=== PATIENT | female | born 1950 | race American Indian/Alaskan Native ===

== ENCOUNTER 2019-09-07 08:59 | Emergency (ER) | payer MEDICARE ==
[2019-09-07 09:10] VITALS: BP 120/53
--- NOTE | 2019-09-07 10:29 | Emergency Department Report ---
ED Extremity Problem HPI - General Chief complaint: Extremity Problem,Nontraumatic Stated complaint: LEG/KNEE PAIN Time Seen by Provider: 09/07/19 10:16 Source: EMS Mode of arrival: Wheelchair Limitations: No Limitations - History of Present Illness Initial comments: This is a 68-year-old female presents the emergency department with chief complaint of left leg pain and swelling. Patient was brought to the emergency department via EMS. She was noted to be walking in [place] and unsure if she is homeless. She has past medical history of diabetes, hypertension and schizophrenia. She has severe arthritis in her leg which is what she thinks is causing her symptoms. She denies any injuries. She denies any associated fevers, chills, chest pain, shortness of breath, weakness or any other associated symptoms. - Related Data Previous Rx's Medication Instructions Recorded Last Taken Type Acetaminophen [Acetaminophen TAB] 650 mg PO ONCE #30 tablet 09/07/19 Unknown Rx Allergies Allergy/AdvReac Type Severity Reaction Status Date / Time No Known Allergies Allergy Unverified 09/07/19 09:05 ED Review of Systems ROS: Stated complaint: LEG/KNEE PAIN Other details as noted in HPI Comment: All other systems reviewed and negative Constitutional: denies: chills, fever Eyes: denies: eye pain, eye discharge, vision change ENT: denies: ear pain, throat pain Respiratory: denies: cough, shortness of breath, wheezing Cardiovascular: denies: chest pain, palpitations Endocrine: no symptoms reported Gastrointestinal: denies: abdominal pain, nausea, diarrhea Genitourinary: denies: urgency, dysuria, discharge Musculoskeletal: as per HPI, arthralgia. denies: back pain, joint swelling Skin: denies: rash, lesions Neurological: denies: headache, weakness, paresthesias Psychiatric: denies: anxiety, depression Hematological/Lymphatic: denies: easy bleeding, easy bruising ED Past Medical Hx - Past Medical History Previous Medical History?: Yes Hx Hypertension: Yes Hx Diabetes: Yes Hx Psychiatric Treatment: Yes (Schizophrenia) - Social History Smoking Status: Never Smoker - Medications Home Medications: Home Medications Medication Instructions Recorded Confirmed Last Taken Type Acetaminophen [Acetaminophen TAB] 650 mg PO ONCE #30 tablet 09/07/19 Unknown Rx ED Physical Exam - General Limitations: No Limitations General appearance: alert, in no apparent distress - Head Head exam: Present: atraumatic, normocephalic - Eye Eye exam: Present: normal appearance, PERRL, EOMI Pupils: Present: normal accommodation - ENT ENT exam: Present: normal exam, normal orophraynx, mucous membranes moist - Neck Neck exam: Present: normal inspection, full ROM. Absent: tenderness, meningismus - Respiratory Respiratory exam: Present: normal lung sounds bilaterally. Absent: respiratory distress, wheezes, rales, rhonchi, stridor - Cardiovascular Cardiovascular Exam: Present: regular rate, normal rhythm, normal heart sounds. Absent: systolic murmur, diastolic murmur, rubs, gallop - GI/Abdominal GI/Abdominal exam: Present: soft, normal bowel sounds. Absent: distended, tenderness, guarding, rebound, rigid - Extremities Exam Extremities exam: Present: normal inspection, full ROM, tenderness (tenderness to palpation over the left knee with negative varus and valgus strain, normal active range of motion without pain. Normal DP and PT pulses. No erythema or edema. No wounds or ulcerations..). Absent: calf tenderness - Back Exam Back exam: Present: normal inspection, full ROM. Absent: tenderness, CVA tenderness (R), CVA tenderness (L) - Neurological Exam Neurological exam: Present: alert, oriented X3, CN II-XII intact - Psychiatric Psychiatric exam: Present: normal affect, normal mood - Skin Skin exam: Present: warm, dry, intact, normal color. Absent: rash ED Course Vital Signs 09/07/19 09:04 Temperature 98.2 F Pulse Rate 69 Respiratory 16 Rate Blood Pressure 120/53 O2 Sat by Pulse 97 Oximetry ED Medical Decision Making - Radiology Data Radiology results: report reviewed Vascular Lab Report Signed Patient: VÍCTOR LEWIS MR#: [id number] : 1950 Acct:[id number] Age/Sex: 68 / F ADM Date: 09/07/19 Loc: ED Attending Dr: Ordering Physician: SAMUEL LAW Date of Service: 09/07/19 Procedure(s): VL venous duplex LE LT Accession Number(s): [id number] cc: SAMUEL LAW DUPLEX DOPPLER LOWER EXTREMITY VEINS, LEFT INDICATION: swelling, pain. TECHNIQUE: Duplex doppler imaging was performed through the veins of the left lower extremity using venous compression and other maneuvers. COMPARISON: None available. FINDINGS: Common Femoral vein: Negative. Superficial Femoral vein: Negative. Popliteal vein: Negative. Calf veins: Negative. Additional findings: Probable small irregular fluid collection popliteal fossa IMPRESSION: 1. No sonographic evidence for DVT in the left lower extremity. Please see comments Signer Name: Mukesh Paulino MD Signed: 09/07/2019 11:25 AM Workstation Name: [id number] Transcribed By: WG Dictated By: Mukesh Paulino MD Electronically Authenticated By: Mukesh Paulino MD Signed Date/Time: 09/07/19 1125 XRay Report Signed Patient: VÍCTOR LEWIS MR#: [id number] : 1950 Acct:[id number] Age/Sex: 68 / F ADM Date: 09/07/19 Loc: ED Attending Dr: Ordering Physician: SAMUEL LAW Date of Service: 09/07/19 Procedure(s): XR knee 1-2V LT Accession Number(s): [id number] cc: SAMUEL LAW Fluoro Time In Minutes: LEFT KNEE 2 VIEWS INDICATION: pain, swelling. COMPARISON: None. IMPRESSION: Borderline bone mineralization. Severe tricompartmental osteoarthritic changes are identified. The lateral compartment appears most affected. Large subchondral cysts or possible osteochondral defects are identified in the lateral compartment. There is no obvious fracture. Moderate joint effusion is noted on the lateral image. Signer Name: Scott Lim Jr, MD Signed: 09/07/2019 11:32 AM Workstation Name: [id number] Transcribed By: TTR Dictated By: SCOTT LIM JR, MD Electronically Authenticated By: SCOTT LIM JR, MD Signed Date/Time: 09/07/19 1132 - Medical Decision Making Patient presented with left flank pain via EMS. X-ray showed severe tricompartmental degenerative changes but no acute findings. Ultrasound was negative for DVT. There are no signs of infection on exam. Patient had normal DP and PT pulses making ischemic leg or severe peripheral vascular disease unlikely the source of her pain. There was soft compartments acute compartment syndrome unlikely. She had normal strength and sensation. I will a suspicion for rhabdomyolysis with no severe muscular tenderness and primarily pain in the joint alone. Recommend outpatient follow-up with orthopedics. manager social services was consulted due to her potential homelessness to ensure that she does have a safe place to go home. She is denying suicidal thoughts, homicidal thoughts, auditory visual hallucinations currently. She revising her stay in the diagnosis, treatment plan and follow-up instructions and all questions were answered. - Differential Diagnosis fracture, DVT, strain, sprain Critical care attestation.: If time is entered above; I have spent that time in minutes in the direct care of this critically ill patient, excluding procedure time. ED Disposition Clinical Impression: Knee pain, left Qualifiers: Chronicity: acute Qualified Code(s): M25.562 - Pain in left knee Disposition: DC- TO HOME OR SELFCARE Is pt being admited?: No Condition: Stable Instructions: Arthralgia (ED) Prescriptions: Acetaminophen [Acetaminophen TAB] 650 mg PO ONCE #30 tablet Referrals: PRIMARY CARE, [Primary Care Provider] - 3-5 Days LIVIA JEFFERY MD [Staff Physician] - 3-5 Days Time of Disposition: 11:53
--- NOTE | 2019-09-07 11:29 | Vascular Lab Report ---
DUPLEX DOPPLER LOWER EXTREMITY VEINS, LEFT INDICATION: swelling, pain. TECHNIQUE: Duplex doppler imaging was performed through the veins of the left lower extremity using venous compr ession and other maneuvers. COMPARISON: None available. FINDINGS: Common Femoral vein: Negative. Superficial Femoral vein: Negative. Popliteal vein: Negative. Calf veins: Negative. Additional findings: Probable small irregular fluid collection popliteal fossa IMPRESSION: 1. No sonographic evidence for DVT in the left lower extremity. Please see comments Signer Name: Mukesh Paulino MD Signed: 09/07/2019 11:25 AM Workstation Name: [id number]
--- NOTE | 2019-09-07 11:36 | XRay Report ---
LEFT KNEE 2 VIEWS INDICATION: pain, swelling. COMPARISON: None. IMPRESSION: Borderline bone mineralization. Severe tricompartmental osteoarthritic changes are iden tified. The lateral compartment appears most affected. Large subchondral cysts or possible osteochond ral defects are identified in the lateral compartment. There is no obvious fracture. Moderate joint e ffusion is noted on the lateral image. Signer Name: Scott Lim Jr, MD Signed: 09/07/2019 11:32 AM Workstation Name: [id number]
[2019-09-07] MEDS ORDERED: ACETAMINOPHEN 325 MG TAB PO ONE (11:52)
== END 2019-09-07 12:30 | disposition home or self-care (01) ==
LOC: ED 08:59
DX: M25.562 Pain in left knee (principal); I10 Essential (primary) hypertension; E11.9 Type 2 diabetes mellitus without complications; F20.9 Schizophrenia, unspecified; Z79.899 Other long term (current) drug therapy

== ENCOUNTER 2021-06-16 03:43 | Emergency (ER) | payer MEDICARE ==
[2021-06-16] MEDS ORDERED: fentaNYL 100 MCG/2 ML INJ IV ONE ×2 (03:51→03:55)
[2021-06-16] MEDS ORDERED: ONDANSETRON 4 MG/2 ML INJ IV ONE ×2 (03:51→03:55)
--- NOTE | 2021-06-16 03:56 | Emergency Department Report ---
HPI - HPI HPI: Charge nurse triage The patient is a 70-year-old female present with chief complaint of neck pain. The patient is extremely poor historian but acknowledges she came to the emergency department because of pain to the right occipital region and neck. Patient denies any preceding trauma. EMS reports a roommate contacted EMS because they thought she had a left facial droop. In the ED there is no focal deficits found however patient continues to complain of pain in the right occipital region and neck. <CINDY RASCON - Last Filed: 06/16/21 05:57> <SHARA LOPEZ - Last Filed: 06/16/21 07:26> - General Time Seen by Provider: 06/16/21 03:49 ED Past Medical Hx - Past Medical History Hx Hypertension: Yes Hx Diabetes: Yes Hx Psychiatric Treatment: Yes (Schizophrenia) - Family History Family history: no significant - Social History Smoking Status: Never Smoker Substance Use Type: None <CINDY RASCON - Last Filed: 06/16/21 05:57> <SHARA LOPEZ - Last Filed: 06/16/21 07:26> - Medications Home Medications: Home Medications Medication Instructions Recorded Confirmed Last Taken Type Acetaminophen [Acetaminophen TAB] 650 mg PO ONCE #30 tablet 09/07/19 Unknown Rx Docusate Sodium [Colace] 100 mg PO BID PRN #60 capsule 06/16/21 Unknown Rx Ferrous Sulfate [Ferrous Sulfate 324 mg PO BID #60 tablet.dr 06/16/21 Unknown Rx 324 MG] HYDROcodone/APAP 5-325 [[place] 1 each PO Q6HR PRN #10 tablet 06/16/21 Unknown Rx 5/325] Ibuprofen [Motrin 800 MG tab] 800 mg PO Q8HR PRN #20 tablet 06/16/21 Unknown Rx ED Review of Systems ROS: Stated complaint: GENERAL ILLNESS/PAIN Other details as noted in HPI Comment: Unobtainable due to pts medical conditions (Poor historian) Neurological: headache <CINDY RASCON - Last Filed: 06/16/21 05:57> ROS: Stated complaint: GENERAL ILLNESS/PAIN Other details as noted in HPI <SHARA LOPEZ - Last Filed: 06/16/21 07:26> Physical Exam - Physical Exam Physical Exam: GENERAL: The patient is well-developed well-nourished female lying on stretcher occasionally crying out secondary to pain in her head and neck. [] HEENT: Normocephalic. Atraumatic. Extraocular motions are intact. Patient has moist mucous membranes. NECK: Supple. Trachea midline CHEST/LUNGS: Clear to auscultation. There is no respiratory distress noted. HEART/CARDIOVASCULAR: Regular. There is no tachycardia. There is no gallop rub or murmur. ABDOMEN: Abdomen is soft, nontender. Patient has normal bowel sounds. There is no abdominal distention. SKIN: There is no rash. There is no edema. There is no diaphoresis. NEURO: The patient is awake, alert, and oriented. The patient is cooperative. The patient has no focal neurologic deficits. Cranial nerves II through XII grossly intact. No facial droop noted. Tongue midline. Moves all extremities. GCS 15. Patient is edentulous making understanding her speech somewhat difficult but this is apparently her baseline per roommate MUSCULOSKELETAL: There is no evidence of acute injury. <CINDY RASCON K - Last Filed: 06/16/21 05:57> - Physical Exam Vital Signs: Vital Signs 06/16/21 06/16/21 06/16/21 04:05 04:21 05:11 Temperature 98.1 F Pulse Rate 70 Respiratory 20 15 Rate Blood Pressure 129/58 [Right] O2 Sat by Pulse 100 99 Oximetry 06/16/21 06/16/21 05:16 06:01 Temperature Pulse Rate 65 71 Respiratory 15 17 Rate Blood Pressure 102/44 112/68 [Right] O2 Sat by Pulse 99 97 Oximetry <SHARA LOPEZ - Last Filed: 06/16/21 07:26> ED Course - Reevaluation(s) Reevaluation #1: 06/16/21 05:50 Patient states she feels better after fentanyl. Awaiting CTA results <CINDY RASCON - Last Filed: 06/16/21 05:57> Vital Signs 06/16/21 06/16/21 06/16/21 04:05 04:21 05:11 Temperature 98.1 F Pulse Rate 70 Respiratory 20 15 Rate Blood Pressure 129/58 [Right] O2 Sat by Pulse 100 99 Oximetry 06/16/21 06/16/21 05:16 06:01 Temperature Pulse Rate 65 71 Respiratory 15 17 Rate Blood Pressure 102/44 112/68 [Right] O2 Sat by Pulse 99 97 Oximetry <SHARA LOPEZ - Last Filed: 06/16/21 07:26> ED Medical Decision Making - Lab Data Result diagrams: 06/16/21 04:18 06/16/21 04:18 - Radiology Data Radiology results: report reviewed (CT head, CT cervical spine), image reviewed (CT head, CT cervical spine) [address] [address] Cat Scan Report Signed Patient: VÍCTOR LEWIS MR#: [id number] : 1950 Acct:[id number] Age/Sex: 70 / F ADM Date: 06/16/21 Loc: ED Attending Dr: Ordering Physician: CINDY RASCON MD Date of Service: 06/16/21 Procedure(s): CT head/brain wo con Accession Number(s): [id number] cc: CINDY RASCON MD CT HEAD WITHOUT CONTRAST INDICATION: Occipital pain, neck pain. TECHNIQUE: All CT scans at this location are performed using CT dose reduction for ALARA by means of automated exposure control. COMPARISON: None available. FINDINGS: HEMORRHAGE: None. EXTRA-AXIAL SPACES: Normal in size and morphology for the patient's age. VENTRICULAR SYSTEM: Normal in size and morphology for the patient's age. BRAIN PARENCHYMA: No acute findings. Diffuse atrophic changes are noted. Mild microangiopathic changes are noted in the deep periventricular white matter. MIDLINE SHIFT OR HERNIATION: None. ORBITS: Normal as visualized. SOFT TISSUES OF HEAD: Normal. CALVARIUM: Normal. VISUALIZED PARANASAL SINUSES AND MASTOID AIR CELLS: Clear. ADDITIONAL FINDINGS: None. IMPRESSION: 1. No acute intracranial abnormality. Signer Name: Mike Valdez MD Signed: 06/16/2021 4:13 AM Workstation Name: [id number] Transcribed By: ANTOINETTE Dictated By: Mike Valdez MD Electronically Authenticated By: Mike Valdez MD Signed Date/Time: 06/16/21412 DD/ 1 TD/TT: Print Cancel [address] [address] Cat Scan Report Signed Patient: VÍCTOR LEWIS MR#: [id number] : 1950 Acct:[id number] Age/Sex: 70 / F ADM Date: 06/16/21 Loc: ED Attending Dr: Ordering Physician: CINDY RASCON MD Date of Service: 06/16/21 Procedure(s): CT cervical spine wo con Accession Number(s): [id number] cc: CINDY RASCON MD CT CERVICAL SPINE WITHOUT CONTRAST INDICATION: Occipital pain, neck pain. TECHNIQUE: Axial CT images of the spine were obtained. Sagittal and coronal reformatted images were produced. All CT scans at this location are performed using CT dose reduction for ALARA by means of automated exposure control. COMPARISON: None available. FINDINGS: ACUTE FRACTURE(S) OR SUBLUXATION: None. SPINAL DEGENERATIVE CHANGES: There is diffuse discogenic degenerative change. There is osseous bridging at the C5-6 disc space. Prominent anterior marginal osteophytes are noted throughout. There is mild diffuse facet arthropathy. PARASPINAL SOFT TISSUES: No soft tissue swelling or other acute abnormalities. ADDITIONAL FINDINGS: No significant additional findings. IMPRESSION: 1. No acute fracture or subluxation in the spine in neutral position. Signer Name: Mike Valdez MD Signed: 06/16/2021 4:12 AM Workstation Name: [id number] Transcribed By: SW Dictated By: Mike Valdez MD Electronically Authenticated By: Mike Valdez MD Signed Date/Time: 06/16/21411 DD/ 8 TD/TT: Print Cancel - Medical Decision Making Patient states her physician has been working her up for her low blood count. She states she had a study performed that did not reveal any blood in her stool. Patient denies bright red blood per rectum or melena. The patient primary physician is aware of the patient's anemia and is working her up. - Differential Diagnosis Headache, ICH, carotid dissection, cervical radiculopathy, <CINDY RASCON K - Last Filed: 06/16/21 05:57> - Lab Data Result diagrams: 06/16/21 04:18 06/16/21 04:18 - Radiology Data CT angio head INDICATION / CLINICAL INFORMATION: 70 years Female; Occipital headache and neck pain. TECHNIQUE: Thin cut axial images obtained through the head during IV bolus contrast administration. Sagittal, coronal, and 3 plane MIP reconstructions performed by the technologist. NASCET type criteria used evaluate stenoses. Automated exposure control utilized for radiation reduction purposes. COMPARISON: None available. FINDINGS: INTERNAL CAROTID ARTERIES: No significant narrowing appreciated. Mild atherosclerotic disease noted. VERTEBROBASILAR SYSTEM: No significant narrowing appreciated. Mild sclerotic disease. DISTAL BRANCHES: Distal branches of the anterior, middle, and posterior cerebral arteries are fairly symmetric in appearance and number. The A1 segment on the right is hypoplastic, compared with the left-normal variant. Focal area of moderate narrowing is seen in the pericallosal branch of the left anterior cerebral artery adjacent to the superior margin of the junction of the genu and body of the corpus callosum. Focal areas of eiay-gs-tjulzvtq narrowing are seen in the P1-2 junctional region on the left posterior cerebral artery. Areas of mild narrowing seen in the same region of the right HEALTH/SAFETY JOB TITLES. ANEURYSM: None identified. ADDITIONAL FINDINGS: Rightward of midline, along the expected location of the tuberculum sella/chiasmatic groove, along the anterior margin of the pituitary fossa, there is an 8mm dural based lesion, most likely representing a very small meningioma. The A1 segment of the right anterior cerebral artery lies along the superior margin of this finding. Mild mucosal thickening seen in the ethmoids. IMPRESSION: 1. No evidence of large vessel occlusion. 2. Focal areas of narrowing as described above. 3. Small, presumed meningioma seen in the region of the chiasmatic annamaria ove/tuberculum sella, rightward of midline CT angio neck INDICATION / CLINICAL INFORMATION: 70 years Female; Occipital headache and neck pain. TECHNIQUE: Thin cut axial images obtained through the head during IV bolus contrast administration. Sagittal, coronal, and 3 plane MIP reconstructions performed by the technologist. NASCET type criteria used evaluate stenoses. All CT scans at this location are performed using CT dose reduction for ALARA by means of automated exposure control. COMPARISON: None available. FINDINGS: ARCH: Normal aortic arch branching suggested. CAROTID ARTERIES: The visualized common and internal carotid arteries are widely patent. Minimal atherosclerotic disease seen in the carotid bifurcation regions. VERTEBRAL ARTERIES: Codominant vertebral system seen. Focal area of mild narrowing is seen at the origin of the left vertebral artery. ADDITIONAL FINDINGS: Multilevel disc space narrowing seen in the cervical s pine. Interbody fusion suggested at C5-6. Osseous foraminal narrowing seen at multiple levels related to uncinate and/or facet hypertrophy. Disc disease combined with ligamentum flavum hypertrophy seen at C3-4 and C4-5 may impinge the cervical lkas-ikuydz-gv with MRI as clinically warranted. Scarring type changes seen in the lung apices-left greater than right. The patient is edentulous. IMPRESSION: 1. No dominant stenosis appreciated on this CTA of the neck. 2. Degenerative changes of the cervical spine as described above. - Medical Decision Making Pt c/o pain to posterior neck, reproducible midline tenderness to midline occipital area and upper cervical spine. 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 pt advised to follo w up with pmd and neurosurgeon <SHARA LOPEZ - Last Filed: 06/16/21 07:26> Critical care attestation.: If time is entered above; I have spent that time in minutes in the direct care of this critically ill patient, excluding procedure time. <CINDY RASCON - Last Filed: 06/16/21 05:57> Critical care attestation.: If time is entered above; I have spent that time in minutes in the direct care of this critically ill patient, excluding procedure time. <SHARA LOPEZ - Last Filed: 06/16/21 07:26> ED Disposition <CINDY RASCON - Last Filed: 06/16/21 05:57> Is pt being admited?: No Time of Disposition: 07:26 <SHARA LOPEZ - Last Filed: 06/16/21 07:26> Clinical Impression: Neck pain, Anemia, Cervical spine degeneration, Meningioma Disposition: 01 HOME / SELF CARE / HOMELESS Condition: Stable Instructions: Degenerative Disk Disease, Meningioma Additional Instructions: Return to the emergency department should you develop worsening symptoms, inability to tolerate food or liquids, high fever or any other concerns Prescriptions: Docusate Sodium [Colace] 100 mg PO BID PRN #60 capsule PRN Reason: Constipation Ferrous Sulfate [Ferrous Sulfate 324 MG] 324 mg PO BID #60 tablet. Ibuprofen [Motrin 800 MG tab] 800 mg PO Q8HR PRN #20 tablet PRN Reason: Pain, Moderate (4-6) HYDROcodone/APAP 5-325 [Corydon 5/325] 1 each PO Q6HR PRN #10 tablet PRN Reason: Pain Referrals: PRIMARY CARE, [Primary Care Provider] - 3-5 Days LIVIA LUO MD [Staff Physician] - 3-5 Days (Dr. Luo is an orthopedic surgeon. Please follow-up with him for further evaluation) JANINE TELLES II, MD [Staff Physician] - 3-5 Days (neurosurgeon follow up regarding your neck pain and mengioma )
--- NOTE | 2021-06-16 04:16 | Cat Scan Report ---
CT CERVICAL SPINE WITHOUT CONTRAST INDICATION: Occipital pain, neck pain. TECHNIQUE: Axial CT images of the spine were obtained. Sagittal and coronal reformatted images were produced. Al l CT scans at this location are performed using CT dose reduction for ALARA by means of automated exp osure control. COMPARISON: None available. FINDINGS: ACUTE FRACTURE(S) OR SUBLUXATION: None. SPINAL DEGENERATIVE CHANGES: There is diffuse discogenic degenerative change. There is osseous bridgi ng at the C5-6 disc space. Prominent anterior marginal osteophytes are noted throughout. There is mil d diffuse facet arthropathy. PARASPINAL SOFT TISSUES: No soft tissue swelling or other acute abnormalities. ADDITIONAL FINDINGS: No significant additional findings. IMPRESSION: 1. No acute fracture or subluxation in the spine in neutral position. Signer Name: Mike Valdez MD Signed: 06/16/2021 4:12 AM Workstation Name: [id number]
--- NOTE | 2021-06-16 04:18 | Cat Scan Report ---
CT HEAD WITHOUT CONTRAST INDICATION: Occipital pain, neck pain. TECHNIQUE: All CT scans at this location are performed using CT dose reduction for ALARA by means of automated e xposure control. COMPARISON: None available. FINDINGS: HEMORRHAGE: None. EXTRA-AXIAL SPACES: Normal in size and morphology for the patient's age. VENTRICULAR SYSTEM: Normal in size and morphology for the patient's age. BRAIN PARENCHYMA: No acute findings. Diffuse atrophic changes are noted. Mild microangiopathic change s are noted in the deep periventricular white matter. MIDLINE SHIFT OR HERNIATION: None. ORBITS: Normal as visualized. SOFT TISSUES OF HEAD: Normal. CALVARIUM: Normal. VISUALIZED PARANASAL SINUSES AND MASTOID AIR CELLS: Clear. ADDITIONAL FINDINGS: None. IMPRESSION: 1. No acute intracranial abnormality. Signer Name: Mike Valdez MD Signed: 06/16/2021 4:13 AM Workstation Name: [id number]
[2021-06-16 04:37] LABS: Hematocrit 20.6 % (30.3-42.9); Hemoglobin 6.5 gm/dl (10.1-14.3); Mean Corpuscular HGB Conc 32 % (30-34); Mean Corpuscular Volume 71 fl (79-97); Platelet Count 364 K/mm3 (140-440); Red Blood Count 2.89 M/mm3 (3.65-5.03); Red Cell Distribution Width 18.7 % (13.2-15.2)
[2021-06-16 04:46] LABS: Calcium 8.4 mg/dL (8.4-10.2); INR 0.94 (0.87-1.13)
[2021-06-16 04:47] LABS: Partial Thromboplastin Time 36.1 Sec. (24.2-36.6)
[2021-06-16 05:12] LABS: Anisocytosis 2+; Hypochromasia 3+; Total Cells Counted 100
[2021-06-16 05:13] LABS: Ovalocytes Few; Platelet Estimate Consistent w Auto
[2021-06-16 06:09] VITALS: BP 112/68
[2021-06-16] MEDS ORDERED: HYDROmorphone 1 MG/1 ML INJ IV PRN (06:25)
--- NOTE | 2021-06-16 06:31 | Cat Scan Report ---
CT angio head INDICATION / CLINICAL INFORMATION: 70 years Female; Occipital headache and neck pain. TECHNIQUE: Thin cut axial images obtained through the head during IV bolus contrast administration. S agittal, coronal, and 3 plane MIP reconstructions performed by the technologist. NASCET type criteria used evaluate stenoses. Automated exposure control utilized for radiation reduction purposes. COMPARISON: None available. FINDINGS: INTERNAL CAROTID ARTERIES: No significant narrowing appreciated. Mild atherosclerotic disease noted. VERTEBROBASILAR SYSTEM: No significant narrowing appreciated. Mild sclerotic disease. DISTAL BRANCHES: Distal branches of the anterior, middle, and posterior cerebral arteries are fairly symmetric in appearance and number. The A1 segment on the right is hypoplastic, compared with the left-normal variant. Focal area of moderate narrowing is seen in the pericallosal branch of the left anterior cerebral art diamond adjacent to the superior margin of the junction of the genu and body of the corpus callosum. Focal areas of [id number]-urqexwhy narrowing are seen in the P1-2 junctional region on the left posterio r cerebral artery. 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 ANEURYSM: None identified. ADDITIONAL FINDINGS: Rightward of midline, along the expected location of the tuberculum sella/chiasm atic groove, along the anterior margin of the pituitary fossa, there is an 8mm dural based lesion, mo st likely representing a very small meningioma. The A1 segment of the right anterior cerebral artery lies along the superior margin of this finding. Mild mucosal thickening seen in the ethmoids. IMPRESSION: 1. No evidence of large vessel occlusion. 2. Focal areas of narrowing as described above. 3. Small, presumed meningioma seen in the region of the chiasmatic groove/tuberculum sella, rightward of midline Signer Name: Faisal Bonilla MD, III Signed: 06/16/2021 6:26 AM Workstation Name: [employer]
--- NOTE | 2021-06-16 06:38 | Cat Scan Report ---
CT angio neck INDICATION / CLINICAL INFORMATION: 70 years Female; Occipital headache and neck pain. TECHNIQUE: Thin cut axial images obtained through the head during IV bolus contrast administration. S agittal, coronal, and 3 plane MIP reconstructions performed by the technologist. NASCET type criteria used evaluate stenoses. All CT scans at this location are performed using CT dose reduction for ALAR A by means of automated exposure control. COMPARISON: None available. FINDINGS: ARCH: Normal aortic arch branching suggested. CAROTID ARTERIES: The visualized common and internal carotid arteries are widely patent. Minimal athe rosclerotic disease seen in the carotid bifurcation regions. VERTEBRAL ARTERIES: Codominant vertebral system seen. Focal area of mild narrowing is seen at the johnna gin of the left vertebral artery. ADDITIONAL FINDINGS: Multilevel disc space narrowing seen in the cervical spine. Interbody fusion sug gested at C5-6. Osseous foraminal narrowing seen at multiple levels related to uncinate and/or facet hypertrophy. Disc disease combined with ligamentum flavum hypertrophy seen at C3-4 and C4-5 may impin ge the cervical ifif-uqricz-cy with MRI as clinically warranted. Scarring type changes seen in the lung apices-left greater than right. The patient is edentulous. IMPRESSION: 1. No dominant stenosis appreciated on this CTA of the neck. 2. Degenerative changes of the cervical spine as described above. Signer Name: Faisal Bonilla MD, III Signed: 06/16/2021 6:33 AM Workstation Name: [email or web address]
== END 2021-06-16 12:55 | disposition home or self-care (01) ==
LOC: ED 03:43
DX: M50.30 Other cervical disc degeneration, unspecified cervical region (principal); D32.9 Benign neoplasm of meninges, unspecified; D64.9 Anemia, unspecified; I10 Essential (primary) hypertension; E11.9 Type 2 diabetes mellitus without complications; F20.9 Schizophrenia, unspecified; R79.1 Abnormal coagulation profile; Z79.899 Other long term (current) drug therapy
CPT/HCPCS: 36415; 70450; 70496; 70498; 72125; 80048; 82805; 85007; 85025; 85610; 85730; 96374; 96375; 99285; J1170; J2405; J3010; Q9967

== ENCOUNTER 2022-01-24 14:00 | Emergency (ER) | payer MEDICARE ==
[2022-01-24] MEDS ORDERED: IBUPROFEN 800 MG TAB PO ONE (15:57)
--- NOTE | 2022-01-24 16:05 | XRay Report ---
LEFT FOOT 3 VIEWS INDICATION / CLINICAL INFORMATION: Fall, injury COMPARISON: None available. FINDINGS: BONES / JOINT(S): No acute fracture or subluxation. There is remodeling at the distal shaft of the fo urth metatarsal consistent with remote, healed fracture. Osteopenia is noted. Osteoarthrosis changes are noted throughout the foot and ankle. There is pes planus deformity. SOFT TISSUES: No significant abnormality. ADDITIONAL FINDINGS: None. Signer Name: Mike Valdez MD Signed: 01/24/2022 3:54 PM Workstation Name: [email or web address]
--- NOTE | 2022-01-24 16:19 | Emergency Department Report ---
ED Lower Extremity HPI - General Chief Complaint: Extremity Injury, Lower Stated Complaint: LFT FOOT PAIN Time Seen by Provider: 01/24/22 15:21 Source: patient, EMS Mode of arrival: Stretcher Limitations: Physical Limitation - History of Present Illness Initial Comments: Patient is a 71-year-old female presenting to ED with complaint of left toe injury after a fall while using her walker. - Related Data Previous Rx's Medication Instructions Recorded Last Taken Type Acetaminophen [Acetaminophen TAB] 650 mg PO ONCE #30 tablet 09/07/19 Unknown Rx Docusate Sodium [Colace] 100 mg PO BID PRN #60 capsule 06/16/21 Unknown Rx Ferrous Sulfate [Ferrous Sulfate 324 mg PO BID #60 tablet. 06/16/21 Unknown Rx 324 MG] HYDROcodone/APAP 5-325 [[place] 1 each PO Q6HR PRN #10 tablet 06/16/21 Unknown Rx 5/325] Ibuprofen [Motrin 800 MG tab] 800 mg PO Q8HR PRN #20 tablet 06/16/21 Unknown Rx Allergies Allergy/AdvReac Type Severity Reaction Status Date / Time No Known Allergies Allergy Unverified 09/07/19 09:05 ED Review of Systems ROS: Stated complaint: LFT FOOT PAIN Other details as noted in HPI Constitutional: denies: chills, fever Respiratory: denies: cough, shortness of breath, wheezing Cardiovascular: denies: chest pain, palpitations Gastrointestinal: denies: abdominal pain, nausea, diarrhea Skin: denies: rash, lesions Neurological: denies: headache, weakness, paresthesias Psychiatric: denies: anxiety, depression ED Past Medical Hx - Past Medical History Hx Hypertension: Yes Hx Diabetes: Yes Hx Psychiatric Treatment: Yes (Schizophrenia) - Social History Smoking Status: Never Smoker Substance Use Type: None - Medications Home Medications: Home Medications Medication Instructions Recorded Confirmed Last Taken Type Acetaminophen [Acetaminophen TAB] 650 mg PO ONCE #30 tablet 09/07/19 Unknown Rx Docusate Sodium [Colace] 100 mg PO BID PRN #60 capsule 06/16/21 Unknown Rx Ferrous Sulfate [Ferrous Sulfate 324 mg PO BID #60 tablet. 06/16/21 Unknown Rx 324 MG] HYDROcodone/APAP 5-325 [[place] 1 each PO Q6HR PRN #10 tablet 06/16/21 Unknown Rx 5/325] Ibuprofen [Motrin 800 MG tab] 800 mg PO Q8HR PRN #20 tablet 06/16/21 Unknown Rx ED Physical Exam - General Limitations: Physical Limitation General appearance: alert, in no apparent distress - Head Head exam: Present: atraumatic, normocephalic - Respiratory Respiratory exam: Present: normal lung sounds bilaterally. Absent: respiratory distress - Cardiovascular Cardiovascular Exam: Present: regular rate, normal rhythm, normal heart sounds - GI/Abdominal GI/Abdominal exam: Present: soft. Absent: distended, tenderness - Extremities Exam Extremities exam: Present: tenderness (Tenderness to left great toe without obvious external signs of injury). Absent: joint swelling - Neurological Exam Neurological exam: Present: alert, oriented X3 - Psychiatric Psychiatric exam: Present: normal affect, normal mood - Skin Skin exam: Present: warm, dry, intact, normal color ED Course Vital Signs 01/24/22 14:06 Temperature 98.3 F Pulse Rate 52 L Respiratory 16 Rate Blood Pressure 150/80 [Left] O2 Sat by Pulse 98 Oximetry ED Lower Extremity MDM - Medical Decision Making X-ray of left foot shows no acute bony injuries. Patient given ibuprofen for pain. She is stable for discharge home with return precautions Critical care attestation.: If time is entered above; I have spent that time in minutes in the direct care of this critically ill patient, excluding procedure time. ED Disposition Clinical Impression: Injury of left great toe, Fall from standing Disposition: 01 HOME / SELF CARE / HOMELESS Is pt being admited?: No Does the pt Need Aspirin: No Condition: Stable Instructions: Crush Injury of the Foot Referrals: PRIMARY CARE, [Primary Care Provider] - 3-5 Days Time of Disposition: 16:18
[2022-01-24 16:57] VITALS: BP 151/86
== END 2022-01-24 23:00 | disposition home or self-care (01) ==
LOC: ED 14:00
DX: S99.922A Unspecified injury of left foot, initial encounter (principal); I10 Essential (primary) hypertension; E11.9 Type 2 diabetes mellitus without complications; F20.9 Schizophrenia, unspecified; W19.XXXA Unspecified fall, initial encounter; Y93.89 Activity, other specified; Y92.89 Other specified places as the place of occurrence of the external cause; Y99.8 Other external cause status
CPT/HCPCS: 99283

== ENCOUNTER 2022-03-14 13:18 | Emergency (ER) | payer MEDICARE ==
[2022-03-14] MEDS ORDERED: SODIUM CHLORIDE 0.9% 1000 ML 1,000 ML IV ONE (14:09)
[2022-03-14] MEDS ORDERED: PANTOPRAZOLE 40 MG INJ IV ONE (14:09)
--- NOTE | 2022-03-14 14:50 | XRay Report ---
CHEST 1 VIEW 03/14/2022 1:37 PM INDICATION / CLINICAL INFORMATION: GI Bleed. COMPARISON: None available. FINDINGS: SUPPORT DEVICES: None. HEART / MEDIASTINUM: No significant abnormality. LUNGS / PLEURA: No significant pulmonary or pleural abnormality. No pneumothorax. ADDITIONAL FINDINGS: No significant additional findings. IMPRESSION: 1. No acute findings. Signer Name: Marco Welsh MD Signed: 03/14/2022 2:45 PM Workstation Name: [id number]
[2022-03-14 15:52] LABS: Basophils % (Auto) 0.8 % (0.0-1.8); Eosinophils # (Auto) 0.1 K/mm3 (0.0-0.4); Hematocrit 23.9 % (30.3-42.9); Hemoglobin 7.8 gm/dl (10.1-14.3); Lymphocytes # (Auto) 0.9 K/mm3 (1.2-5.4); Lymphocytes % (Auto) 17.9 % (13.4-35.0); Mean Corpuscular HGB Conc 33 % (30-34); Mean Corpuscular Volume 97 fl (79-97); Monocytes # (Auto) 0.3 K/mm3 (0.0-0.8); Monocytes % (Auto) 6.3 % (0.0-7.3); Platelet Count 243 K/mm3 (140-440); Red Blood Count 2.45 M/mm3 (3.65-5.03); Red Cell Distribution Width 15.9 % (13.2-15.2)
[2022-03-14 15:55] LABS: Alanine Aminotransferase 6 units/L (7-56); Albumin 3.3 g/dL (3.9-5); BUN/Creatinine Ratio 18; Blood Urea Nitrogen 21 mg/dL (7-17); Calcium 7.9 mg/dL (8.4-10.2); Hemolysis Index 2
[2022-03-14 16:03] LABS: INR 1.03 (0.87-1.13)
--- NOTE | 2022-03-14 16:09 | Emergency Department Report ---
ED General Adult HPI - General Chief complaint: GI Bleed Stated complaint: RECTAL BLEEDING Time Seen by Provider: 03/14/22 15:25 Source: EMS Mode of arrival: Stretcher Limitations: Physical Limitation - History of Present Illness Initial comments: The patient presents to the emergency department with chief complaint of abdominal pain as well as dark stools. Patient states this morning she woke up and her stomach was upset. Patient states she went to the bathroom and had a loose stool with dark appearance to it. She complains of abdominal pain as sharp in nature and is diffuse. Denies any chest pain, shortness breath, headache -: Sudden Location: abdomen Radiation: non-radiation Severity scale (0 -10): 3 Consistency: constant Improves with: none Worsens with: none Associated Symptoms: denies other symptoms Treatments Prior to Arrival: none - Related Data Previous Rx's Medication Instructions Recorded Last Taken Type Acetaminophen [Acetaminophen TAB] 650 mg PO ONCE #30 tablet 09/07/19 Unknown Rx Docusate Sodium [Colace] 100 mg PO BID PRN #60 capsule 06/16/21 Unknown Rx Ferrous Sulfate [Ferrous Sulfate 324 mg PO BID #60 tablet.dr 06/16/21 Unknown Rx 324 MG] HYDROcodone/APAP 5-325 [[place] 1 each PO Q6HR PRN #10 tablet 06/16/21 Unknown Rx 5/325] Ibuprofen [Motrin 800 MG tab] 800 mg PO Q8HR PRN #20 tablet 06/16/21 Unknown Rx Dicyclomine [Bentyl] 10 mg PO QID PRN #20 capsule 03/14/22 Unknown Rx Allergies Allergy/AdvReac Type Severity Reaction Status Date / Time No Known Allergies Allergy Verified 03/14/22 13:33 ED Review of Systems ROS: Stated complaint: RECTAL BLEEDING Other details as noted in HPI Comment: All other systems reviewed and negative Constitutional: denies: chills, fever Eyes: denies: eye pain, eye discharge, vision change ENT: denies: ear pain, throat pain Respiratory: denies: cough, shortness of breath, wheezing Cardiovascular: denies: chest pain, palpitations Endocrine: no symptoms reported Gastrointestinal: abdominal pain. denies: nausea, diarrhea Genitourinary: denies: urgency, dysuria, discharge Musculoskeletal: denies: back pain, joint swelling, arthralgia Skin: denies: rash, lesions Neurological: denies: headache, weakness, paresthesias Psychiatric: denies: anxiety, depression Hematological/Lymphatic: denies: easy bleeding, easy bruising ED Past Medical Hx - Past Medical History Previous Medical History?: Yes Hx Hypertension: Yes Hx Diabetes: Yes Hx Psychiatric Treatment: Yes (Schizophrenia) - Social History Smoking Status: Never Smoker Substance Use Type: None - Medications Home Medications: Home Medications Medication Instructions Recorded Confirmed Last Taken Type Acetaminophen [Acetaminophen TAB] 650 mg PO ONCE #30 tablet 09/07/19 Unknown Rx Docusate Sodium [Colace] 100 mg PO BID PRN #60 capsule 06/16/21 Unknown Rx Ferrous Sulfate [Ferrous Sulfate 324 mg PO BID #60 tablet.dr 06/16/21 Unknown R x 324 MG] HYDROcodone/APAP 5-325 [[place] 1 each PO Q6HR PRN #10 tablet 06/16/21 Unknown Rx 5/325] Ibuprofen [Motrin 800 MG tab] 800 mg PO Q8HR PRN #20 tablet 06/16/21 Unknown Rx Dicyclomine [Bentyl] 10 mg PO QID PRN #20 capsule 03/14/22 Unknown Rx ED Physical Exam - General Limitations: Physical Limitation General appearance: alert, in no apparent distress - Head Head exam: Present: atraumatic, normocephalic - Eye Eye exam: Present: normal appearance, PERRL, EOMI - ENT ENT exam: Present: mucous membranes moist - Neck Neck exam: Present: normal inspection - Respiratory Respiratory exam: Present: normal lung sounds bilaterally. Absent: respiratory distress - Cardiovascular Cardiovascular Exam: Present: regular rate, normal rhythm. Absent: systolic murmur, diastolic murmur, rubs, gallop - GI/Abdominal GI/Abdominal exam: Present: soft, tenderness (Diffusely tender to palpation), normal bowel sounds. Absent: distended - Extremities Exam Extremities exam: Present: normal inspection - Back Exam Back exam: Present: normal inspection - Neurological Exam Neurological exam: Present: alert, oriented X3, CN II-XII intact. Absent: motor sensory deficit - Psychiatric Psychiatric exam: Present: normal affect, normal mood - Skin Skin exam: Present: warm, dry, intact, normal color. Absent: rash ED Course Vital Signs 03/14/22 03/14/22 03/14/22 11:50 13:29 13:58 Temperature 99.9 F H Pulse Rate 79 Respiratory 16 Rate Blood Pressure 139/79 Blood Pressure 115/55 [Left] O2 Sat by Pulse 98 99 100 Oximetry 03/14/22 03/14/22 03/14/22 14:00 14:16 14:30 Temperature Pulse Rate Respiratory Rate Blood Pressure 139/79 84/65 84/65 Blood Pressure [Left] O2 Sat by Pulse 100 97 98 Oximetry 03/14/22 03/14/22 03/14/22 14:46 15:00 15:16 Temperature Pulse Rate 64 53 L Respiratory 24 14 Rate Blood Pressure 84/65 102/45 96/41 Blood Pressure [Left] O2 Sat by Pulse 96 99 99 Oximetry 03/14/22 03/14/22 03/14/22 15:30 15:46 16:00 Temperature Pulse Rate 56 L 57 L 58 L Respiratory 13 13 15 Rate Blood Pressure 96/41 100/46 100/46 Blood Pressure [Left] O2 Sat by Pulse 97 99 99 Oximetry 03/14/22 03/14/22 03/14/22 16:16 16:30 16:46 Temperature Pulse Rate 62 61 60 Respiratory 30 H 14 14 Rate Blood Pressure 100/46 140/107 107/51 Blood Pressure [Left] O2 Sat by Pulse 100 98 98 Oximetry 03/14/22 03/14/22 03/14/22 17:00 17:16 17:30 Temperature Pulse Rate 59 L 59 L 62 Respiratory 15 14 24 Rate Blood Pressure 107/51 107/51 107/51 Blood Pressure [Left] O2 Sat by Pulse 99 99 100 Oximetry 03/14/22 03/14/22 03/14/22 17:46 18:00 18:15 Temperature Pulse Rate 54 L 52 L 60 Respiratory 25 H 17 18 Rate Blood Pressure 103/43 107/51 103/43 Blood Pressure [Left] O2 Sat by Pulse 99 99 99 Oximetry 03/14/22 03/14/22 03/14/22 18:31 18:45 19:01 Temperature Pulse Rate 57 L 62 63 Respiratory 14 15 24 Rate Blood Pressure 73/54 73/54 73/54 Blood Pressure [Left] O2 Sat by Pulse 99 99 100 Oximetry 03/14/22 03/14/22 03/14/22 19:15 19:31 19:35 Temperature Pulse Rate 71 56 L 57 L Respiratory 22 13 16 Rate Blood Pressure 73/54 80/59 Blood Pressure 115/62 [Left] O2 Sat by Pulse 98 99 100 Oximetry Medical Decision Making - Lab Data Result diagrams: 03/14/22 15:17 03/14/22 15:17 Lab Results 03/14/22 03/14/22 03/14/22 Range/Units 15:17 15:17 15:17 WBC 4.8 (4.5-11.0) K/mm3 RBC 2.45 L (3.65-5.03) M/mm3 Hgb 7.8 L (10.1-14.3) gm/dl Hct 23.9 L (30.3-42.9) % MCV 97 (79-97) fl MCH 32 (28-32) pg MCHC 33 (30-34) % RDW 15.9 H (13.2-15.2) % Plt Count 243 (140-440) K/mm3 Lymph % (Auto) 17.9 (13.4-35.0) % [place] % (Auto) 6.3 (0.0-7.3) % Eos % (Auto) 2.0 (0.0-4.3) % Baso % (Auto) 0.8 (0.0-1.8) % Lymph # (Auto) 0.9 L (1.2-5.4) K/mm3 [place] # (Auto) 0.3 (0.0-0.8) K/mm3 Eos # (Auto) 0.1 (0.0-0.4) K/mm3 Baso # (Auto) 0.0 (0.0-0.1) K/mm3 Seg Neutrophils % 73.0 H (40.0-70.0) % Seg Neutrophils # 3.5 (1.8-7.7) K/mm3 PT 14.7 (12.2-14.9) Sec. INR 1.03 (0.87-1.13) Sodium 142 (137-145) mmol/L Potassium 4.1 (3.6-5.0) mmol/L Chloride 111.7 H (98-107) mmol/L Carbon Dioxide 22 (22-30) mmol/L Anion Gap 12 mmol/L BUN 21 H (7-17) mg/dL Creatinine 1.2 (0.6-1.2) mg/dL Estimated GFR 54 ml/min BUN/Creatinine Ratio 18 % Glucose 107 H (65-100) mg/dL Lactic Acid (0.7-2.0) mmol/L Calcium 7.9 L (8.4-10.2) mg/dL Total Bilirubin < 0.20 (0.1-1.2) mg/dL AST 10 (5-40) units/L ALT 6 L (7-56) units/L Alkaline Phosphatase 66 (35-129) units/L Total Protein 4.9 L (6.3-8.2) g/dL Albumin 3.3 L (3.9-5) g/dL Albumin/Globulin Ratio 2.1 % Lipase 19 (13-60) units/L Urine Color (Yellow) Urine Turbidity (Clear) Urine pH (5.0-7.0) Ur Specific [place] (1.003-1.030) Urine Protein (Negative) mg/dL Urine Glucose (UA) (Negative) mg/dL Urine Ketones (Negative) mg/dL Urine Blood (Negative) Urine Nitrite (Negative) Ur Reducing Substances Urine Bilirubin (Negative) Urine Ictotest Urine Urobilinogen (<2.0) mg/dL Ur Leukocyte Esterase (Negative) Urine WBC (Auto) (0.0-6.0) /HPF Urine RBC (Auto) (0.0-6.0) /HPF U Epithel Cells (Auto) (0-13.0) /HPF Blood Type Antibody Screen 03/14/22 03/14/22 03/14/22 Range/Units 15:17 15:20 20:01 WBC (4.5-11.0) K/mm3 RBC (3.65-5.03) M/mm3 Hgb (10.1-14.3) gm/dl Hct (30.3-42.9) % MCV (79-97) fl MCH (28-32) pg MCHC (30-34) % RDW (13.2-15.2) % Plt Count (140-440) K/mm3 Lymph % (Auto) (13.4-35.0) % [place] % (Auto) (0.0-7.3) % Eos % (Auto) (0.0-4.3) % Baso % (Auto) (0.0-1.8) % Lymph # (Auto) (1.2-5.4) K/mm3 [place] # (Auto) (0.0-0.8) K/mm3 Eos # (Auto) (0.0-0.4) K/mm3 Baso # (Auto) (0.0-0.1) K/mm3 Seg Neutrophils % (40.0-70.0) % Seg Neutrophils # (1.8-7.7) K/mm3 PT (12.2-14.9) Sec. INR (0.87-1.13) Sodium (137-145) mmol/L Potassium (3.6-5.0) mmol/L Chloride (98-107) mmol/L Carbon Dioxide (22-30) mmol/L Anion Gap mmol/L BUN (7-17) mg/dL Creatinine (0.6-1.2) mg/dL Estimated GFR ml/min BUN/Creatinine Ratio % Glucose (65-100) mg/dL Lactic Acid 1.40 (0.7-2.0) mmol/L Calcium (8.4-10.2) mg/dL Total Bilirubin (0.1-1.2) mg/dL AST (5-40) units/L ALT (7-56) units/L Alkaline Phosphatase (35-129) units/L Total Protein (6.3-8.2) g/dL Albumin (3.9-5) g/dL Albumin/Globulin Ratio % Lipase (13-60) units/L Urine Color Straw (Yellow) Urine Turbidity Clear (Clear) Urine pH 6.5 (5.0-7.0) Ur Specific [place] 1.010 (1.003-1.030) Urine Protein 30 mg/dl (Negative) mg/dL Urine Glucose (UA) Negative (Negative) mg/dL Urine Ketones Negative (Negative) mg/dL Urine Blood 2+ (Negative) Urine Nitrite Negative (Negative) Ur Reducing Substances Not Reportable Urine Bilirubin Negative (Negative) Urine Ictotest Not Reportable Urine Urobilinogen < 2.0 (<2.0) mg/dL Ur Leukocyte Esterase Negative (Negative) Urine WBC (Auto) 2.0 (0.0-6.0) /HPF Urine RBC (Auto) 1.0 (0.0-6.0) /HPF U Epithel Cells (Auto) 3.0 (0-13.0) /HPF Blood Type O POSITIVE Antibody Screen Negative - Radiology Data Radiology results: report reviewed - Medical Decision Making The patient declined rectal exam stating that she did not want anything in her bedside. Patient states that her last colonoscopy was quite sometime ago. Patient has not had another bowel movement in the ED Patient's hemoglobin was compared to her prior hemoglobin and today is approximately 1 g higher. Patient also tells me that she takes ferrous sulfate and I told her this could be the cause of her dark stools. Critical care attestation.: If time is entered above; I have spent that time in minutes in the direct care of this critically ill patient, excluding procedure time. ED Disposition Clinical Impression: Abdominal pain, Dark stools Disposition: 01 HOME / SELF CARE / HOMELESS Is pt being admited?: No Does the pt Need Aspirin: No Condition: Stable Instructions: Abdominal Pain, Adult, Gastrointestinal Bleeding Additional Instructions: return if worse Referrals: YAJAIRA HENRIQUEZ MD [Primary Care Provider] - 3-5 Days [facility] [Provider Group] - 3-5 Days Forms: Accompanied Note Time of Disposition: 20:30
--- NOTE | 2022-03-14 17:45 | Cat Scan Report ---
CT ABDOMEN AND PELVIS WITH CONTRAST INDICATION / CLINICAL INFORMATION: Abdominal pain. TECHNIQUE: Axial CT images were obtained through the abdomen and pelvis after Omnipaque 300, 80 cc IV contrast. All CT scans at this location are performed using CT dose reduction for ALARA by means of automated exposure control. COMPARISON: None available. FINDINGS: LOWER CHEST: No significant abnormality. LIVER: No significant abnormality. GALLBLADDER: No significant abnormality. BILE DUCTS: No significant abnormality. PANCREAS: No significant abnormality. SPLEEN: No significant abnormality. ADRENALS: No significant abnormality. RIGHT KIDNEY / URETER: No significant abnormality. LEFT KIDNEY / URETER: No significant abnormality. STOMACH / SMALL BOWEL: No significant abnormality. COLON: No significant abnormality. APPENDIX: No significant abnormality. PERITONEUM: No free fluid. No free air. No fluid collection. LYMPH NODES: No significant adenopathy. VASCULAR STRUCTURES: No significant abnormality. URINARY BLADDER: No significant abnormality. REPRODUCTIVE ORGANS: 3 cm left ovarian cyst. Uterus absent. ADDITIONAL FINDINGS: None. SKELETAL SYSTEM: Previous placement right hip prosthesis. Previous screw placement left hip. IMPRESSION: 1. Negative for obstruction or localized inflammation. 2. Physiologic appearing cyst left ovary. Signer Name: Den Stafford MD Signed: 03/14/2022 5:41 PM Workstation Name: [id number]
[2022-03-14 20:17] LABS: Bilirubin,Urine Negative (Negative); Blood,Urine 2+ (Negative); Color,Urine Straw (Yellow); PH,Urine 6.5 (5.0-7.0); Urobilinogen,Urine < 2.0 mg/dL (<2.0)
[2022-03-14 20:29] VITALS: BP 109/54
== END 2022-03-14 20:44 | disposition home or self-care (01) ==
LOC: ED 13:18
DX: R10.9 Unspecified abdominal pain (principal); K92.1 Melena
CPT/HCPCS: 36415; 71045; 74177; 80053; 81001; 82140; 83690; 85025; 85610; 86850; 86900; 86901; 96361; 96374; 99285; C9113; Q9967